=== PATIENT | male | born 1955 | race Caucasian/White ===

== ENCOUNTER 2017-12-02 18:55 | Emergency (ER) | payer BC ==
[2017-12-02] MEDS ORDERED: Diph,Pert(Acell),Tet Vac 0.5 ML SYR IM ONE (19:14)
[2017-12-02] MEDS ORDERED: CEPHALEXIN 500 MG CAPSULE PO STA (19:14)
--- NOTE | 2017-12-02 19:14 | Emergency Department Record ---
History of Present Illness - General Chief Complaint: Laceration(s) Stated Complaint: LACERATIONS ON FINGERS OF RT HAND Time Seen by Provider: 12/02/17 19:08 Source: Patient Mode of Arrival: Ambulatory Limitations: No limitations - History of Present Illness Initial Commments: 62 yo male presents to ED for evaluation following injury to the right ring and little digits while using a grinding tool at home. Patient reports initial bleeding symptoms, denies other injury. Patient reports that his last tetanus was in 2008, reports history of DM and HTN. Patient denies weakness to the fingers, numbness, or tingling symptoms. Onset/Timin -: Minutes(s) Extremity Location: Right: Hand Place: Home Context: Accidental Associated Symptoms: None Treatments Prior to Arrival: Bandage - [place] Coma Scale Eye Response: (4) Open spontaneously Motor Response: (6) Obeys commands Verbal Response: (5) Oriented [place] Total: 15 - Related Data Hx Tetanus Toxoid Vaccination: Yes Patient Tetanus UTD (within 5 yrs): No Previous Rx's Medication Instructions Recorded Cephalexin [Keflex] 500 mg PO QID #39 cap 12/02/17 Allergies Allergy/AdvReac Type Severity Reaction Status Date / Time No Known Drug Allergies Allergy Verified 12/02/17 19:04 Review of Systems Constitutional: Denies: Chills, Fever, Malaise, Night sweats Eyes: Denies: Eye discharge, Eye pain ENT: Denies: Congestion, Ear pain, Epistaxis Respiratory: Denies: Cough, Dyspnea Cardiovascular: Denies: Chest pain, Dyspnea on exertion Endocrine: Denies: Fatigue, Heat or cold intolerance Gastrointestinal: Denies: Abdominal pain, Nausea, Vomiting Genitourinary: Denies: Incontinence, Retention Musculoskeletal: Denies: Arthralgia, Back pain, Gout, Joint swelling Skin: Reports: Other (1.5 cm laceration to the little digit distally). Denies: Bruising, Change in color Neurological: Denies: Abnormal gait, Confusion, Headache, Tingling, Tremors Psychiatric: Denies: Anxiety Hematological/Lymphatic: Denies: Anemia, Blood Clots Past Medical History - SOCIAL HISTORY Smoking Status: Current every day smoker Drug Use: None - RESPIRATORY Hx Respiratory Disorders: No - CARDIOVASCULAR Hx Cardio Disorders: Yes Comment:: high cholesterol - NEURO Hx Neuro Disorders: No - GI Hx GI Disorders: No - Hx Genitourinary Disorders: No - ENDOCRINE Hx Endocrine Disorders: Yes Hx Diabetes: Yes Hx Thyroid Disease: Yes - MUSCULOSKELETAL Hx Musculoskeletal Disorders: Yes Hx Arthritis: Yes - PSYCH Hx Psych Problems: No - HEMATOLOGY/ONCOLOGY Hx Hematology/Oncology Disorders: No Physical Exam - General General Appearance: Alert, Oriented x3, Cooperative, Mild distress Limitations: No limitations - Head Head exam: Atraumatic, Normocephalic, Normal inspection Head exam detail: negative: Abrasion, Contusion, Swift's sign, General tenderness, Hematoma, Laceration - Eye Eye exam: Normal appearance. negative: Conjunctival injection, Periorbital swelling, Periorbital tenderness, Scleral icterus - ENT Ear exam: negative: Auricular hematoma, Auricular trauma Nasal Exam: negative: Active bleeding, Discharge, Dried blood, Foreign body Mouth exam: negative: Drooling, Laceration, Muffled voice, Tongue elevation - Neck Neck exam: Normal inspection. negative: Meningismus, Tenderness - Respiratory Respiratory exam: Normal lung sounds bilaterally. negative: Respiratory distress, Rhonchi, Stridor, Wheezes - Cardiovascular Cardiovascular Exam: Regular rate, Normal rhythm, Normal heart sounds - GI/Abdominal GI/Abdominal exam: Soft. negative: Rebound, Rigid, Tenderness - Rectal Rectal exam: Deferred - exam: Deferred - Extremities Extremities exam: Other (Mild TTP over the 1.5 cm laceration to the right little finger with bleeding well controlled, no tendon injury on examination. 0.5 cm laceration with tissue loss present to the distal aspect of the right ring finger. ). negative: Calf tenderness, Pedal edema, Tenderness - Back Back exam: Denies: CVA tenderness (R), CVA tenderness (L) - Neurological Neurological exam: Alert, Normal gait, Oriented X3 - Psychiatric Psychiatric exam: Normal affect, Normal mood - Skin Skin exam: Normal color. negative: Abrasion Type of lesion: negative: abrasion Course - Reevaluation(s) Reevaluation #1: 12/02/17 19:35 Laceration to the left little finger was anesthetized with 1 mL 0.25% Sensorcaine without epi with good anesthesia. Attempted primary closure of the patient's wound, however due to tissue loss, primary closure was unable to be completed. Wound was scrubbed clean with Shur-clens solution to minimize the chance of infection. Will apply thombipad with instructions for dressing changes daily. Tetanus was updated prior to discharge, and Keflex was initiated for a 10-day course prior to discharge. Patient verbalizes understanding of all instructions and appears stable for discharge at this time. Disposition Disposition: Discharge Clinical Impression: Finger laceration Qualifiers: Encounter type: initial encounter Finger: little finger Damage to nail status: without damage Foreign body presence: unspecified Laterality: right Qualified Code(s): S61.216A - Laceration without foreign body of right little finger without damage to nail, initial encounter Disposition: Home, Self-Care Condition: (2) Stable Instructions: Laceration (ED) Additional Instructions: Return to ED if your symptoms worsen or if you have any concerns. Keflex as directed. Follow-up with your family doctor in 5-7 days. Sutures out in 10-14 days. Prescriptions: Cephalexin [Keflex] 500 mg PO QID #39 cap Forms: Patient Portal Access Time of Disposition: 19:37 Quality - Quality Measures Quality Measures: N/A - Blood Pressure Screening Does Patient Have Any of the Following: No Blood Pressure Classification: Normal BP Reading Systolic Measurement: 116 Diastolic Measurement: 65 Screening for High Blood Pressure: < Normal BP, F/U Not Required > [G8783]
[2017-12-02] MEDS ORDERED: THROMBIN/GELATIN FOAM HEMOSTAT (THROMBI-GEL) TP ONE (19:34)
== END 2017-12-02 19:57 | disposition home or self-care (01) ==
LOC: ER 18:55
DX: S61.216A Laceration without foreign body of right little finger without damage to nail, initial encounter (principal); S61.214A Laceration without foreign body of right ring finger without damage to nail, initial encounter; W29.8XXA Contact with other powered hand tools and household machinery, initial encounter; Y92.009 Unspecified place in unspecified non-institutional (private) residence as the place of occurrence of the external cause; F17.210 Nicotine dependence, cigarettes, uncomplicated; I10 Essential (primary) hypertension; E11.9 Type 2 diabetes mellitus without complications; Z79.84 Long term (current) use of oral hypoglycemic drugs
CPT/HCPCS: 90715; 96372; 99283

== ENCOUNTER 2018-03-02 16:57 | Emergency (ER) | payer BC ==
--- NOTE | 2018-03-02 17:33 | Emergency Department Record ---
History of Present Illness - General Chief Complaint: Laceration(s) Stated Complaint: LACERATION ON LT HAND Time Seen by Provider: 03/02/18 17:10 Source: Patient Mode of Arrival: Ambulatory Limitations: No limitations - History of Present Illness Initial Commments: The patient cut his L forearm with a say about 30 minutes ago. He denies any weakness, numbness or tingling. His Td is UTD and he just started taking Keflex for a finger injury. The lac was not thru any fabric. Onset/Timin -: Minutes(s) Place: Home, School Context: Accidental, Power tool use Associated Symptoms: None Treatments Prior to Arrival: Bandage - Related Data Hx Tetanus Toxoid Vaccination: Yes Year of Tetanus Vaccination: 2017 Allergies Allergy/AdvReac Type Severity Reaction Status Date / Time No Known Drug Allergies Allergy Verified 12/02/17 19:04 Travel Screening - Travel/Exposure Within Last 30 Days Have you traveled within the last 30 days?: No Review of Systems Constitutional: Denies: Chills, Fever Past Medical History - SOCIAL HISTORY Smoking Status: Current every day smoker - RESPIRATORY Hx Respiratory Disorders: No - CARDIOVASCULAR Hx Cardio Disorders: Yes Comment:: high cholesterol - NEURO Hx Neuro Disorders: No - GI Hx GI Disorders: No - Hx Genitourinary Disorders: No - ENDOCRINE Hx Endocrine Disorders: Yes Hx Diabetes: Yes Hx Thyroid Disease: Yes - MUSCULOSKELETAL Hx Musculoskeletal Disorders: Yes Hx Arthritis: Yes - PSYCH Hx Psych Problems: No - HEMATOLOGY/ONCOLOGY Hx Hematology/Oncology Disorders: No Family Medical History Any Significant Family History?: Yes Hx Alcohol Use: Father Physical Exam - General General Appearance: Alert, Cooperative, No acute distress - Head Head exam: Atraumatic, Normocephalic - Eye Eye exam: Normal appearance - Extremities Extremities exam: negative: Normal inspection (There is a 1.4 cm laceration to the mid L forearm anteriorly. The L arm is NVI distally. There is no swelling or bleeding.) Image of Full Body: 1 - 1.4 cm lac. Course Vital Signs 03/02/18 17:18 Temperature 97.7 F Pulse Rate [ 63 Pulse Ox Probe] Respiratory 20 Rate Blood Pressure 135/126 [Left Arm] Pulse Ox 98 - Reevaluation(s) Reevaluation #1: Procedure note: The L arm was cleansed with betadine and anesth. with 3 cc's Lido 1% with Epi. The wound was lavaged with sterile saline and explored. No FB was found and no tendon lac was visualized. The lac was then closed with 3 4.0 nylon sutures. There were no complications. 03/02/18 17:37 03/02/18 17:39 03/02/18 17:41 Disposition Disposition: Discharge Clinical Impression: Laceration of arm Qualifiers: Encounter type: initial encounter Laterality: left Qualified Code(s): S41.112A - Laceration without foreign body of left upper arm, initial encounter Disposition: Home, Self-Care Condition: (2) Stable Instructions: Laceration (ED) Additional Instructions: Keep dry for 2 days then no soaking or swimming. Continue your home Keflex and take your home pain medicines. Return for signs of infection and have the sutures removed in 10 days. Forms: Patient Portal Access Time of Disposition: 17:42 Quality - Quality Measures Quality Measures: N/A - Blood Pressure Screening View Details: Yes Does Patient Have Any of the Following: No Blood Pressure Classification: Pre-Hypertensive BP Reading Systolic Measurement: 129 Diastolic Measurement: 50 Screening for High Blood Pressure: < Pre-Hypertensive BP, F/U Documented > [ [id number]] Pre-Hypertensive Follow-up Interventions: Referral to alternative/primary care provider.
== END 2018-03-02 18:00 | disposition home or self-care (01) ==
LOC: ER 16:57
DX: S51.812A Laceration without foreign body of left forearm, initial encounter (principal); W29.8XXA Contact with other powered hand tools and household machinery, initial encounter; Y92.009 Unspecified place in unspecified non-institutional (private) residence as the place of occurrence of the external cause; E11.9 Type 2 diabetes mellitus without complications; F17.210 Nicotine dependence, cigarettes, uncomplicated
CPT/HCPCS: 12001; 99283